=== PATIENT | female | born 1985 | race American Indian/Alaskan Native ===

== ENCOUNTER 2020-05-31 19:46 | Emergency (ER) | payer SELFPAY ==
[2020-05-31 21:11] VITALS: BP 140/75
--- NOTE | 2020-05-31 22:40 | Emergency Department Report ---
Chief Complaint: Urogenital-Female Stated Complaint: LOWER BACK PAIN Time Seen by Provider: 05/31/20 22:35 - HPI History of Present Illness: Patient is a 34-year-old female presents emergency room stating that she would like to have routine STD panel. She states that she has a new sexual partner and just wants to be tested. She states that she had a small amount of white vaginal discharge and just began using Monistat 2 days ago which she states has improved the discharge. She denies any vaginal itching or burning or lesions or blisters. She denies any dysuria or urinary frequency. She denies any abdominal pain or pelvic pain. She denies any fever, nausea, vomiting. No past medical history. no Allergies medications. LNMP: 05/21/2020 vss on exam: Non toxic appearing, no acute distress atraumatic, normocephalic normal appearance of the eyes, EOMI, no periorbital edema or ecchymosis moist mucus membranes No respiratory distress A&O x4, normal gait Patient is presenting for a routine STD panel given that she has had a new sexual partner She states initially she had a small amount of white vaginal discharge which improved after using Monistat for 2 days She is not having any vaginal itching, burning, lesions, blisters, dysuria, urinary frequency, abdominal pain, pelvic pain, fever, nausea, vomiting She has no clinical signs of PID at this time She has no clinical signs of significant UTI at this time Patient be referred to a clinic in the health department in order to receive a full STD panel Patient given the appropriate resources Discussed very strict return precautions with patient Medical screening examination performed and there is no threat to life or limb at this time - Exam Vital Signs: Vital Signs 05/31/20 21:08 Temperature 98.5 F Pulse Rate 102 H Respiratory 18 Rate Blood Pressure 140/75 O2 Sat by Pulse 100 Oximetry MSE screening note: Focused history and physical exam performed. ED Disposition for MSE Clinical Impression: Concern about STD in female without diagnosis Disposition: Z-07 MED SCREENING EXAM-LEFT Is pt being admited?: No Does the pt Need Aspirin: No Condition: Stable Instructions: Safe Sex Additional Instructions: please follow up with the health department or a clinic for a full STD panel. have any partner tested and treated as well. avoid sexual intercourse. return to the emergency room for any new or worsening symptoms. Well Address: [address] [place] [id number] Referrals: [facility] [Outside] - 2-3 Days Time of Disposition: 22:38 Print Language: JORDANIAN
== END 2020-05-31 23:00 | disposition left against medical advice (07) ==
LOC: ED 19:46
DX: M54.5 Low back pain (principal); Z53.21 Procedure and treatment not carried out due to patient leaving prior to being seen by health care provider